=== PATIENT | male | born 1965 | race Caucasian/White ===

== ENCOUNTER 2025-03-18 14:30 | Inpatient (IN) | payer MEDICARE, MEDICAID ==
[~2025-03-18] VITALS: Ht 175.3 cm; Wt 71.9 kg
[~2025-03-18 14:30] MED LIST: AMAN-24 PO; ASCO500C18 PO; CHOL500013 PO; CLOZ100T61 PO; DIVA-153 PO; MELA5TAB40 PO; METO25XL PO; MONT-40 PO; MULT-1366 PO
[2025-03-18] MEDS ORDERED: ZOLPIDEM TARTRATE 10 MG TABLET PO PRN (16:30)
[2025-03-18] MEDS: ACETAMINOPHEN 325 MG TABLET PO ONE (20:33)
[2025-03-18 21:15] LABS: PLATELET COUNT (AUTO) 241 K/uL (150-450); RED BLOOD CELL COUNT(AUTO) 4.17 MIL/uL (4.50-5.90); RED CELL DISTRIBUTION WIDTH 14.8 % (11.5-14.5); WHITE BLOOD COUNT (AUTO) 10.2 K/uL (4.5-11.0)
[2025-03-18 21:27] LABS: CALCIUM, TOTAL 9.1 mg/dL (8.8-10.5); CREATININE 0.89 mg/dL (0.60-1.30); GLOMERULAR FILTR. RATE CALC > 60 mL/min (>60); GLUCOSE,RANDOM 114 mg/dL (70-110); SODIUM SERUM 137 mmol/L (136-145); UREA NITROGEN, BLOOD 18 mg/dL (7-18)
[2025-03-18 21:34] LABS: ASPARTATE AMINOTRANSFERASE 17 U/L (15-37); TOTAL PROTEIN, SERUM 6.6 g/dL (6.4-8.2)
[2025-03-18 21:43] LABS: COVID AG,FIA SOURCE NASAL SWAB
[2025-03-18 21:44] LABS: ALCOHOL, BLOOD (SERUM) < 3 mg/dL (0-10)
[2025-03-18 22:09] LABS: SARS-COV2 (COVID) ANTIGEN,FIA Negative (Negative)
[2025-03-19 00:58] LABS: APPEARANCE,URINE CLEAR (CLEAR); GLUCOSE, URINE (UA) NEGATIVE (NEGATIVE); LEUKOCYTE ESTERASE ,URINE TRACE (NEGATIVE); NITRATE,URINE NEGATIVE (NEGATIVE); OCCULT BLOOD,URINE NEGATIVE (NEGATIVE); SPECIFIC GRAVITIY, URINE 1.014 (1.003-1.030)
[2025-03-19 01:06] LABS: ALCOHOL, URINE DRUG SCREEN NEGATIVE (NEGATIVE); AMPHET/METH SCREEN,URINE NEGATIVE (NEGATIVE); BARBITURATE SCREEN, URINE NEGATIVE (NEGATIVE); CANNABINOID SCREEN,URINE NEGATIVE (NEGATIVE); COCAINE SCREEN,URINE NEGATIVE (NEGATIVE); METHADONE SCREEN, URINE NEGATIVE (NEGATIVE)
[2025-03-19 01:09] LABS: PH,URINE DRUG SCREEN 6.5 (5.0-8.0)
[2025-03-19 05:37] LABS: CHOL/HDL RATIO 3.5 (4.2-7.3); LDL CHOL (CALC.) 95.0 mg/dL (0-130)
[2025-03-19] MEDS ORDERED: ACET-2247 PO (10:51)
[2025-03-19] MEDS ORDERED: FLUV50 PO (10:51)
[2025-03-19] MEDS ORDERED: BISA10SU11 PR (10:51)
[2025-03-19] MEDS ORDERED: DIVA-112 PO (10:51)
[2025-03-19] MEDS: ACETAMINOPHEN 325 MG TABLET PO ONE (17:01)
[2025-03-19] MEDS: DIVALPROEX SODIUM 250 MG DR TABLET PO ONE (18:37)
[2025-03-19 20:23] VITALS: O2SAT 97
[2025-03-20 00:47] VITALS: BP 113/90; PULSE 69; RESP 18; TEMP 97.7; O2SAT 97
[2025-03-20] MEDS ORDERED: INFLUENZA VIRUS VACCINE TVS (6MO+) 2025-26/PF 45 MCG/0.5 ML SYRINGE IM. ONE (04:30)
[2025-03-20] MEDS ORDERED: BACITRACIN 28 GM OINTMENT TP PRN (07:30)
[2025-03-20] MEDS ORDERED: BENZOCAINE/MENTHOL [CEPACOL] LOZENGE PO PRN (07:30)
[2025-03-20] MEDS ORDERED: IBUPROFEN 600 MG TABLET PO PRN (07:30)
[2025-03-20] MEDS ORDERED: ACETAMINOPHEN 325 MG TABLET PO PRN ×2 (07:30→11:45)
[2025-03-20] MEDS ORDERED: OMEPRAZOLE 20 MG CAPSULE PO PRN (07:30)
[2025-03-20] MEDS ORDERED: ONDANSETRON 4 MG TABLET PO PRN (07:30)
[2025-03-20] MEDS ORDERED: MAG HYDROX/ALUMINUM HYD/SIMETH ES 30 ML SUSPENSION UDCUP PO PRN (07:30)
[2025-03-20] MEDS ORDERED: PETROLATUM,WHITE 28 GM JELLY TP PRN (07:30)
[2025-03-20] MEDS ORDERED: MAGNESIUM HYDROXIDE SUSPENSION 30 ML UDCUP PO PRN ×2 (07:30→11:45)
[2025-03-20] MEDS ORDERED: LOPERAMIDE HCL 2 MG CAPSULE PO PRN ×2 (07:30→11:45)
[2025-03-20] MEDS ORDERED: ALBUTEROL SULFATE HFA 90 MCG/PUFF 8 GM INHALER IH PRN (07:30)
[2025-03-20 08:30] VITALS: RESP 18
[2025-03-20] MEDS: MONTELUKAST SODIUM 10 MG TABLET PO SCH (10:26)
[2025-03-20] MEDS: METOPROLOL SUCCINATE 25 MG ER TABLET PO SCH (10:26)
[2025-03-20] MEDS: ASCORBIC ACID 500 MG TABLET PO SCH (10:27)
[2025-03-20] MEDS: CHOLECALCIFEROL (VIT D3) 5,000 [125 MCG] UNITS CAPSULE PO SCH (10:27)
[2025-03-20] MEDS ORDERED: PROMETHAZINE HCL 25 MG TABLET PO PRN (11:45)
[2025-03-20] MEDS ORDERED: GuaiFENesin/D-METHORPHAN [SUGAR-FREE] 200-20MG/10 ML SYRUP UDCUP PO PRN (11:45)
[2025-03-20] MEDS ORDERED: MELATONIN 5 MG TABLET PO PRN (11:45)
[2025-03-20] MEDS: DIVALPROEX SODIUM 500 MG ER TABLET PO SCH (13:09)
[2025-03-20] MEDS: RisperiDONE ER SUSPENSION 250 MG/0.7 ML PRE-FILLED SYRINGE SQ ONE (15:47)
[2025-03-20] MEDS: THIAMINE 100 MG TABLET PO SCH (18:44)
[2025-03-20 20:52] VITALS: BP 132/58; PULSE 78; RESP 18; TEMP 97.8; O2SAT 97
[2025-03-20] MEDS: OLANZapine 5 MG RAPDIS TABLET PO SCH (20:56)
[2025-03-21 08:07] VITALS: BP 126/69; PULSE 79; RESP 17; TEMP 97.9; O2SAT 98
[2025-03-21] MEDS: FOLIC ACID 1 MG TABLET PO SCH (09:59)
[2025-03-21] MEDS: MULTIVITAMINS WITH MINERALS, THERAPEUTIC TABLET PO SCH (10:00)
[2025-03-21 20:11] VITALS: BP 133/76; PULSE 82; RESP 18; TEMP 98.5; O2SAT 97
[2025-03-22] MEDS: MAG HYDROX/ALUMINUM HYD/SIMETH ES 30 ML SUSPENSION UDCUP PO PRN (05:30)
[2025-03-22 08:02] VITALS: BP 113/83; PULSE 84; RESP 18; TEMP 98.1; O2SAT 97
[2025-03-22] MEDS: DOCUSATE SODIUM 100 MG CAPSULE PO PRN (13:43)
[2025-03-22 20:33] VITALS: BP 127/85; PULSE 74; RESP 18; TEMP 98; O2SAT 97
[2025-03-23 10:25] VITALS: BP 127/75; PULSE 66; RESP 17; TEMP 98.1; O2SAT 96
[2025-03-23 22:01] VITALS: BP 134/65; PULSE 64; RESP 18; TEMP 97.7; O2SAT 98
[2025-03-24 11:06] VITALS: BP 112/63; PULSE 63; RESP 18; TEMP 98.3; O2SAT 99
[2025-03-25 06:58] LABS: PLATELET COUNT (AUTO) 244 K/uL (150-450); RED BLOOD CELL COUNT(AUTO) 4.17 MIL/uL (4.50-5.90); RED CELL DISTRIBUTION WIDTH 14.9 % (11.5-14.5); WHITE BLOOD COUNT (AUTO) 12.1 K/uL (4.5-11.0)
[2025-03-25 09:29] VITALS: BP 133/68; PULSE 55; RESP 18; TEMP 97.7; O2SAT 100
[2025-03-26 12:23] VITALS: BP 135/61; PULSE 65; RESP 18; TEMP 98.1; O2SAT 96
[2025-03-26 13:07] LABS: CLOZAPINE & NORCLOZAPINE 857 ng/mL; NORCLOZAPINE 227 ng/mL (Not Estab.)
[2025-03-26] MEDS ORDERED: RISP250S SQ (18:34)
[2025-03-26] MEDS ORDERED: OLAN5TAB94 PO (18:34)
[2025-03-26 20:00] VITALS: BP 128/72; PULSE 64; RESP 18; TEMP 98.7; O2SAT 99
[2025-03-26] MEDS: PRAZOSIN HCL 1 MG CAPSULE PO SCH (22:18)
[2025-03-27] MEDS ORDERED: FOLI-130 PO (08:58)
[2025-03-27] MEDS ORDERED: PRAZ1 PO (09:00)
[2025-03-27] MEDS ORDERED: THIA100T80 PO (09:00)
[2025-03-27 09:40] VITALS: BP 123/68; PULSE 62; RESP 18; TEMP 97.9; O2SAT 98
[2025-05-19] MEDS ORDERED: RisperiDONE ER SUSPENSION 250 MG/0.7 ML PRE-FILLED SYRINGE SQ SCH (09:00)
== END 2025-03-27 15:24 | DRG 885 ==
LOC: EMS 14:30 → 3EX 03-19 23:45 → UNDOADMIN 03-19 23:45
PROVIDERS: ADMIT Psychiatry & Neurology Psychiatry; ATTEND Psychiatry & Neurology Psychiatry
PROC: GZHZZZZ Group Psychotherapy (ICD-10-PCS; principal; 2025-03-19)
PROC: GZ58ZZZ Individual Psychotherapy, Cognitive-Behavioral (ICD-10-PCS; 2025-03-19)
PROC: GZ56ZZZ Individual Psychotherapy, Supportive (ICD-10-PCS; 2025-03-19)
DX: F25.9 Schizoaffective disorder, unspecified (principal); R45.851 Suicidal ideations; G20.A1 Parkinson's disease without dyskinesia, without mention of fluctuations; I10 Essential (primary) hypertension; J44.9 Chronic obstructive pulmonary disease, unspecified; E78.5 Hyperlipidemia, unspecified; K21.9 Gastro-esophageal reflux disease without esophagitis; F41.9 Anxiety disorder, unspecified; Z20.822 Contact with and (suspected) exposure to COVID-19; E78.00 Pure hypercholesterolemia, unspecified; G47.00 Insomnia, unspecified; F17.200 Nicotine dependence, unspecified, uncomplicated; Z63.9 Problem related to primary support group, unspecified; Z59.9 Problem related to housing and economic circumstances, unspecified; Z65.3 Problems related to other legal circumstances; Z55.9 Problems related to education and literacy, unspecified; Z88.2 Allergy status to sulfonamides; Z87.820 Personal history of traumatic brain injury; Z91.148 Patient's other noncompliance with medication regimen for other reason
CPT/HCPCS: 51701; 80048; 80061; 80076; 80159; 80164; 80307; 81001; 83036; 85025; 87081; 99285; G0378; G0480